=== PATIENT | male | born 1995 | race Caucasian/White ===

== ENCOUNTER 2018-11-03 15:16 | Emergency (ER) | payer MEDICAID ==
[~2018-11-03] VITALS: Ht 170.2 cm; Wt 59.1 kg
[2018-11-03 15:41] VITALS: BP 164/93
[2018-11-03] MEDS ORDERED: ketorolac trometh. 30mg/ml inj. IV ONE (16:30)
[2018-11-03] MEDS ORDERED: IBUP-1984 PO (16:30)
[2018-11-03] MEDS ORDERED: CLIN300C70 PO (16:30)
== END 2018-11-03 16:47 | disposition home or self-care (01) ==
LOC: ER 15:17
DX: S02.5XXA Fracture of tooth (traumatic), initial encounter for closed fracture (principal); K02.9 Dental caries, unspecified; F17.200 Nicotine dependence, unspecified, uncomplicated; Z79.899 Other long term (current) drug therapy; X58.XXXA Exposure to other specified factors, initial encounter; Y93.89 Activity, other specified; Y92.89 Other specified places as the place of occurrence of the external cause; Y99.8 Other external cause status
CPT/HCPCS: 96374; 99283; J1885

== ENCOUNTER 2019-04-29 15:20 | Emergency (ER) | payer MEDICAID ==
[~2019-04-29] VITALS: Ht 175.3 cm; Wt 66.0 kg
[~2019-04-29 15:20] MED LIST: LIDOcaine 1% 30ml preserv. free vial ONE
[2019-04-29 15:25] VITALS: BP 125/86
[2019-04-29] MEDS ORDERED: TETanus/Pertussis (Acell)/Diphther VAC/PF (Tdap-Adult) 0.5ml syringe IMVAC ONE (16:30)
[2019-04-29] MEDS ORDERED: bacitracin 15gm ointment TP ONE (16:30)
[2019-04-29] MEDS ORDERED: CEPH250T PO (17:14)
== END 2019-04-29 17:38 | disposition home or self-care (01) ==
LOC: ER 15:21
DX: S61.012A Laceration without foreign body of left thumb without damage to nail, initial encounter (principal); Z79.899 Other long term (current) drug therapy; W26.0XXA Contact with knife, initial encounter; Y93.89 Activity, other specified; Y92.89 Other specified places as the place of occurrence of the external cause; Y99.8 Other external cause status
CPT/HCPCS: 12001; 90471; 90715; 99283; J2001

== ENCOUNTER 2019-06-21 05:27 | Emergency (ER) | payer MEDICAID ==
[~2019-06-21] VITALS: Ht 172.7 cm; Wt 70.0 kg
[2019-06-21] MEDS ORDERED: clindamycin phosphate 150mg/ml inj. IM ONE (05:45)
--- NOTE | 2019-06-21 05:45 | NUR ---
PT REFUSED TO HAVE THE ABCESS TO HIS LEFT HAND DRAINED. STATES " I D RATHER NOT OPEN THE WOUND , I WOULD LIKE TO TAKE MEDICINE FIRST AND IF THAT DOESNT WORK I CAN COME BACK " PT STATES HE IS HOMELESS AND" DOESN'T WANT TO INFECT THE WOUND LIVING ON THE STREETS WITH A OPEN WOUND " PT AGREED TO TAKING ABX IM AND PO
[2019-06-21] MEDS ORDERED: CLIN-90 PO (05:50)
[2019-06-21 06:06] VITALS: BP 146/91
== END 2019-06-21 06:05 | disposition home or self-care (01) ==
LOC: ER 05:28
DX: L02.512 Cutaneous abscess of left hand (principal); F15.10 Other stimulant abuse, uncomplicated; Z79.899 Other long term (current) drug therapy
CPT/HCPCS: 96372; 99283; J3490